=== PATIENT | female | born 1955 | race African-American/Black ===

== ENCOUNTER 2017-05-10 17:21 | Emergency (ER) | payer SELFPAY, MEDICARE ==
[2017-05-10 18:50] LABS: BILIRUBIN,URINE NEGATIVE (NEG); CLARITY,URINE CLEAR; COLOR,URINE YELLOW; GLUCOSE,URINE NEGATIVE (NEG); NITRITE,URINE NEGATIVE (NEG); PROTEIN,URINE NEGATIVE (NEG-TRACE); UROBILINOGEN,URINE 0.2 mg/dL (0.2 mg/dL)
[2017-05-10 18:59] LABS: BACTERIA,URINE FEW /HPF (0-FEW); RBC,URINE RARE /HPF (0-2); SQUAMOUS EPITHELIAL CELL,UR FEW /LPF; WBC,URINE 0 /HPF (0-4)
[2017-05-10 19:14] LABS: ADD MAN DIFF? NO
[2017-05-10 19:15] LABS: BASO # 0.1 x10^3/uL (0.0-0.2); BASO % 1 % (0-3); EOS # 0.1 x10^3/uL (0.0-0.7); EOS % 1 % (0-3); HEMATOCRIT 42.5 % (36.0-47.0); HEMOGLOBIN 14.4 g/dL (12.0-15.5); LYMPH # 2.2 x10^3/uL (1.0-4.8); LYMPH % 28 % (24-48); MEAN CORPUSCULAR HEMOGLOBIN 30 pg (25-35); MEAN CORPUSCULAR HGB CONC 34 g/dL (31-37); MEAN CORPUSCULAR VOLUME 90 fL (79-100); MONO # 0.5 x10^3/uL (0.0-1.1); MONO % 7 % (0-9); NEUT % 63 % (31-73); PLATELET COUNT 288 x10^3/uL (140-400); RED BLOOD COUNT 4.74 x10^6/uL (3.50-5.40); RED CELL DISTRIBUTION WIDTH 13.9 % (11.5-14.5); WHITE BLOOD COUNT 7.9 x10^3/uL (4.0-11.0)
[2017-05-10] MEDS: fentaNYL PF VIAL 100 MCG/2 ML VIAL IV ×4 (19:23→20:39)
[2017-05-10] MEDS: IV NORMAL SALINE 1000ML BAG 1,000 ML IV ×2 (19:23)
[2017-05-10] MEDS: ONDANSETRON PF 4 MG/2 ML VIAL. IV ×2 (19:23)
[2017-05-10 19:26] LABS: ANION GAP 9 (6-14); BLOOD UREA NITROGEN 11 mg/dL (7-20); BUN/CREATININE RATIO 14 (6-20); CALCIUM 9.9 mg/dL (8.5-10.1); CARBON DIOXIDE 30 mmol/L (21-32); CHLORIDE 102 mmol/L (98-107); CREATININE 0.8 mg/dL (0.6-1.0); GFR 87.7; GLUCOSE 91 mg/dL (70-99); POTASSIUM 3.8 mmol/L (3.5-5.1); SODIUM 141 mmol/L (136-145)
[2017-05-10 19:32] LABS: ALBUMIN 4.1 g/dL (3.4-5.0); ALK PHOS 116 U/L (46-116); ALT (SGPT) 17 U/L (14-59); AST (SGOT) 19 U/L (15-37); LIPASE 53 U/L (73-393); TOTAL BILIRUBIN 0.7 mg/dL (0.2-1.0); TOTAL PROTEIN 8.2 g/dL (6.4-8.2)
[2017-05-10] MEDS ORDERED: IOHEXOL 300 MG/ML 100ML VIAL. IV ×2 (20:00)
[2017-05-10] MEDS ORDERED: CCPD PATIENT. MC ×2 (20:15)
[2017-05-10] MEDS ORDERED: CONTRAST GIVEN MC ×2 (20:15)
[2017-05-10] MEDS ORDERED: MORPHINE SULFATE 4 MG/ML DISP.SYRIN. IV/SQ ×2 (20:30)
[2017-05-10] MEDS: hydrALAZINE 20 MG/ML VIAL. IVP ×2 (21:08)
== END 2017-05-10 21:29 | disposition left against medical advice (07) ==
LOC: ER 17:21
DX: R10.33 Periumbilical pain (principal); I10 Essential (primary) hypertension; K43.9 Ventral hernia without obstruction or gangrene; J44.9 Chronic obstructive pulmonary disease, unspecified; I25.2 Old myocardial infarction; Z90.710 Acquired absence of both cervix and uterus; Z88.8 Allergy status to other drugs, medicaments and biological substances; Z88.6 Allergy status to analgesic agent; Z91.018 Allergy to other foods; Z91.013 Allergy to seafood
CPT/HCPCS: 36415; 74177; 76705; 80053; 81001; 83690; 85025; 96361; 96374; 96375; 96376; 99285-25; J0360; J2405; J3010; J7030